=== PATIENT | male | born 1950 | race Caucasian/White ===

== ENCOUNTER 2019-04-06 09:18 | Inpatient (IN) | payer OTHER ==
[~2019-04-06] VITALS: Ht 177.8 cm; Wt 99.7 kg
[~2019-04-06 09:18] MED LIST: DILAUDID 2 MG TA2 MG PO; TIZANIDINE HCL 22 MG PO
[2019-04-06 09:28] VITALS: BP 147/73
[2019-04-06] MEDS ORDERED: LOPRESSOR50 PO (09:32)
[2019-04-06] MEDS ORDERED: IBUPROFEN 800800 M1 PO (09:33)
[2019-04-06] MEDS ORDERED: TENSION HEADAC1 EAC2 PO (09:34)
[2019-04-06] MEDS ORDERED: PROTONIX40 M1 PO (09:34)
[2019-04-06] MEDS ORDERED: SYNTHROID100 MC1 PO (09:34)
[2019-04-06] MEDS ORDERED: PHENERGAN 25 MG25 M1 PO (09:35)
[2019-04-06] MEDS ORDERED: ZOCOR20 MG PO (09:35)
[2019-04-06] MEDS ORDERED: LIORESAL 10 MG10 MG PO (09:35)
[2019-04-06] MEDS ORDERED: ASPIRIN81 M2 PO (09:36)
[2019-04-06] MEDS ORDERED: ZYRTEC 10 MG TA10 MG PO (09:36)
[2019-04-06] MEDS ORDERED: ZINC50 MG PO (09:36)
[2019-04-06] MEDS ORDERED: MULTI VITAMIN1 EACH PO (09:37)
[2019-04-06 09:51] LABS: ABSOLUTE BASOPHILS 0.1 thou/uL (0.0-0.2); ABSOLUTE EOSINOPHILS 0.1 thou/uL (0.0-0.7); ABSOLUTE LYMPHOCYTES 1.7 thou/uL (0.8-5.3); ABSOLUTE MONOCYTES 0.9 thou/uL (0.0-1.2); BASOPHILS 1.2 %; EOSINOPHILS 1.2 %; HEMATOCRIT 35.7 % (42.0-52.0); HEMOGLOBIN 12.3 gm/dL (14.0-18.0); LYMPHOCYTES 15.5 %; MCH 30.3 pg (26.0-34.0); MCHC 34.3 g/dL (28.0-37.0); MCV 88.2 fL (80.0-100.0); MONOCYTES 7.9 %; MPV 8.3 fl. (7.2-11.1); NUCLEATED RBCS 0 /100WBC; PLATELET COUNT* 336 thou/uL (150-400); POLYS 74.2 %; RBC 4.05 mil/uL (4.50-6.00); RDW-CV 12.6 % (10.5-14.5); WBC 10.8 thou/uL (4.0-11.0)
[2019-04-06 10:04] LABS: PCO2 31.3 mmHg (35.0-45.0)
[2019-04-06 10:08] LABS: PO2 54.6 mmHg (75.0-100.0)
[2019-04-06 10:12] LABS: NT-PRO BRAIN NAT PEPTIDE < 5 pg/mL (<300); TROPONIN-I LEVEL <0.06 ng/mL (<0.06)
[2019-04-06 10:21] LABS: ANION GAP 12 mmol/L (7-16); BUN 19 mg/dL (7-18); CALCIUM 8.9 mg/dL (8.5-10.1); CHLORIDE 96 mmol/L (98-107); CO2 27 mmol/L (21-32); CREATININE 1.3 mg/dL (0.6-1.3); GLUCOSE 153 mg/dL (70-99); SODIUM 135 mmol/L (136-145)
[2019-04-06 10:34] LABS: ALKALINE PHOSPHATASE 76 U/L (46-116); SGOT 48 U/L (15-37); SGPT 67 U/L (30-65); TOTAL BILIRUBIN 0.5 mg/dL (<0.1-1.0)
[2019-04-06 10:36] LABS: POTASSIUM 2.9 mmol/L (3.5-5.1)
[2019-04-06 13:30] VITALS: BP 118/68
[2019-04-06 13:36] VITALS: BP 119/64
--- NOTE | 2019-04-06 14:51 | EKG ---
[place] [address] ELECTROCARDIOGRAM REPORT Name: SILVIA CHACKO Room: [address] ADM IN [facility]#: [id number] Admission: 04/06/19 Attend Phys: Hunter Rahman MD Discharge: Date of : 52 Report #: [id number] THIS REPORT FOR: //name// [facility] ED Test Date: 2019-04-06 Test Time: 09:21:53 Pat Name: SILVIA CHACKO Department: Room: [facility] Gender: M Concrete Mason: : 1950 Requested By: Anton Donaldson Order Number: [id number] MD: Joaquín Waldrop Measurements Intervals [place] Rate: 93 P: -1 W[place]: 157 QRS: -2 QRSD: 93 T: 0 QT: 363 QTc: 452 Interpretive Statements Sinus rhythm Probable left atrial enlargement Borderline T abnormalities, inferior leads No previous ECG available for comparison Electronically Signed On 04-06-2019 14:51:35 CDT by Joaquín Waldrop [email or web address] <ELECTRONICALLY SIGNED> By: Joaquín Waldrop MD, [facility] 04/06/19 1451 0 0 Joaquín Waldrop MD, FACC /EPI
[2019-04-06 16:10] VITALS: BP 102/52
[2019-04-06 20:00] VITALS: BP 139/76
[2019-04-06 21:00] LABS: URINE BILIRUBIN NEGATIVE (Negative); URINE BLOOD 2+ (Negative); URINE CLARITY CLEAR; URINE COLOR YELLOW; URINE GLUCOSE-RANDOM 1+ (Negative); URINE KETONES NEGATIVE (Negative); URINE LEUKOCYTES NEGATIVE (Negative); URINE NITRITE NEGATIVE (Negative); URINE PROTEIN 2+ (Negative); URINE SPECIFIC GRAVITY >= 1.030 (1.005-1.030); URINE UROBILINOGEN >= 8.0 E.U./dl (0.2-1.0)
[2019-04-06 21:09] LABS: AMP/METHAMP Negative (Negative); BARBITURATES POSITIVE (Negative); BENZODIAZEPINES Negative (Negative); COCAINE Negative (Negative); METHADONE Negative (Negative); OPIATES POSITIVE (Negative); PCP Negative (Negative); THC Negative (Negative)
[2019-04-06 21:12] LABS: HYALINE CASTS 0-3 Few /LPF (None Seen)
[2019-04-06 21:14] LABS: MUCUS 0-3 Light strn/LPF (None Seen)
[2019-04-06 21:15] LABS: CRYSTALS None Seen /LPF (None Seen); URINE RBC 3-10 Few /HPF (0-2); URINE WBC 0-5 Rare /HPF (0-5)
[2019-04-06 21:16] LABS: SQUAMOUS NONE SEEN /LPF (0-3)
[2019-04-06 21:17] LABS: BACTERIA 1-9 Few /HPF (None Seen)
[2019-04-07 00:23] VITALS: BP 123/57
[2019-04-07 04:30] VITALS: BP 131/59
[2019-04-07 05:14] LABS: HEMATOCRIT 32.9 % (42.0-52.0); HEMOGLOBIN 10.9 gm/dL (14.0-18.0); MCH 29.6 pg (26.0-34.0); MCHC 33.3 g/dL (28.0-37.0); MCV 88.8 fL (80.0-100.0); NUCLEATED RBCS 0 /100WBC; RDW-CV 12.6 % (10.5-14.5); WBC 15.8 thou/uL (4.0-11.0)
[2019-04-07 05:28] LABS: PLATELET COUNT* 261 thou/uL (150-400)
[2019-04-07 05:29] LABS: CREATININE 1.1 mg/dL (0.6-1.3)
[2019-04-07 05:34] LABS: POTASSIUM 2.6 mmol/L (3.5-5.1)
[2019-04-07 06:27] LABS: ABSOLUTE LYMPHOCYTES 0.5 thou/uL (0.8-5.3); ABSOLUTE MONOCYTES 0.3 thou/uL (0.0-1.2); PLATELET ESTIMATE ADEQUATE
[2019-04-07 07:05] VITALS: BP 113/57
[2019-04-07 12:19] VITALS: BP 105/56
[2019-04-07 16:41] VITALS: BP 121/58
[2019-04-07 20:00] VITALS: BP 123/66
[2019-04-08] VITALS: BP 95/54
[2019-04-08 04:00] VITALS: BP 122/61
[2019-04-08 04:37] LABS: BE 0.2 mmol/L (-2 to +3); PCO2 36.1 mmHg (35.0-45.0); PO2 65.4 mmHg (75.0-100.0); pH 7.441 (7.340-7.450)
[2019-04-08 04:48] LABS: ABSOLUTE LYMPHOCYTES 0.3 thou/uL (0.8-5.3); ABSOLUTE MONOCYTES 0.6 thou/uL (0.0-1.2); ABSOLUTE NEUTROPHILS 17.6 thou/uL (1.6-8.1); HEMATOCRIT 32.1 % (42.0-52.0); HEMOGLOBIN 10.6 gm/dL (14.0-18.0); LYMPHOCYTES 1.8 %; MCH 29.3 pg (26.0-34.0); MCV 88.7 fL (80.0-100.0); MONOCYTES 3.3 %; MPV 8.2 fl. (7.2-11.1); NUCLEATED RBCS 0 /100WBC; PLATELET COUNT* 309 thou/uL (150-400); POLYS 94.9 %; RBC 3.62 mil/uL (4.50-6.00); RDW-CV 12.7 % (10.5-14.5); WBC 18.5 thou/uL (4.0-11.0)
[2019-04-08 05:06] LABS: ALBUMIN 2.2 g/dL (3.4-5.0); CALCIUM 8.8 mg/dL (8.5-10.1); CREATININE 1.3 mg/dL (0.6-1.3); POTASSIUM 3.2 mmol/L (3.5-5.1); TOTAL BILIRUBIN 0.2 mg/dL (<0.1-1.0); TOTAL PROTEIN 6.8 g/dL (6.4-8.2)
[2019-04-08 07:00] VITALS: BP 101/56
[2019-04-08 13:02] VITALS: BP 128/69
[2019-04-08 16:27] VITALS: BP 109/63
[2019-04-08 20:00] VITALS: BP 110/68
[2019-04-09] VITALS: BP 144/77
[2019-04-09 04:00] VITALS: BP 137/74
[2019-04-09 04:30] LABS: ABSOLUTE LYMPHOCYTES 0.4 thou/uL (0.8-5.3); ABSOLUTE MONOCYTES 0.7 thou/uL (0.0-1.2); ABSOLUTE NEUTROPHILS 15.3 thou/uL (1.6-8.1); BASOPHILS 0.1 %; HEMOGLOBIN 10.5 gm/dL (14.0-18.0); LYMPHOCYTES 2.6 %; MCH 29.7 pg (26.0-34.0); MCHC 33.8 g/dL (28.0-37.0); MCV 87.9 fL (80.0-100.0); MONOCYTES 4.5 %; MPV 8.1 fl. (7.2-11.1); NUCLEATED RBCS 0 /100WBC; PLATELET COUNT* 355 thou/uL (150-400); POLYS 92.8 %; RBC 3.52 mil/uL (4.50-6.00); RDW-CV 12.9 % (10.5-14.5); WBC 16.4 thou/uL (4.0-11.0)
[2019-04-09 05:21] LABS: CALCIUM 8.9 mg/dL (8.5-10.1); CREATININE 1.2 mg/dL (0.6-1.3); POTASSIUM 3.6 mmol/L (3.5-5.1)
[2019-04-09 07:00] VITALS: BP 111/62
[2019-04-09] MEDS ORDERED: DOXYCYCLINE 10100 MG PO (10:46)
[2019-04-09] MEDS ORDERED: PREDNISONE 10 M10 MG PO (10:49)
[2019-04-09 10:50] VITALS: BP 111/62
== END 2019-04-09 12:30 | disposition home or self-care (01) | DRG 871 ==
LOC: M.ERS 09:18 → M.2W 11:06 → M.TBA-ER 11:06 → M.2W 13:31
PROVIDERS: Emergency Medicine; ADMIT Internal Medicine
DX: A41.9 Sepsis, unspecified organism (principal); J15.6 Pneumonia due to other Gram-negative bacteria; J96.01 Acute respiratory failure with hypoxia; J44.0 Chronic obstructive pulmonary disease with (acute) lower respiratory infection; E87.6 Hypokalemia; G89.29 Other chronic pain; Z88.0 Allergy status to penicillin; Z87.891 Personal history of nicotine dependence